=== PATIENT | male | born 1980 | race Two or more races ===

== ENCOUNTER 2025-09-19 12:49 | Emergency (ER) | payer OTHER ==
[~2025-09-19] VITALS: Ht 172.7 cm; Wt 68.9 kg
[2025-09-19] MEDS ORDERED: ASPIRIN 325 MG TABLET.EC PO ONE ×2 (13:45→15:23)
[2025-09-19] MEDS ORDERED: 0.9 % SODIUM CHLORIDE 500 ML IV ONE (13:45)
[2025-09-19 16:00] LABS: BASO % 0.7 % (0.1-1.2); EOS # 0.10 (0.04-0.54); EOS % 1.7 % (0.7-7.0); LYMPH # 1.76 (1.18-3.74); LYMPH % 30.7 % (19.3-53.1); MEAN PLATELET VOLUME 10.00 fl (9.4-12.4); MONO # 0.44 (0.24-0.82); MONO % 7.7 % (4.7-12.5); NEUT # 3.38 (1.56-6.13); NEUT % 58.9 % (34.0-71.1); RED CELL DISTRIBUTION WIDTH 14.2 % (11.6-14.4)
[2025-09-19 16:14] LABS: INR 0.98
[2025-09-19 16:20] LABS: URINE APPEARANCE Clear; URINE BILIRRUBIN Negative (NEGATIVE); URINE BLOOD Negative; URINE COLOR Yellow; URINE GLUCOSE Negative (NEGATIVE); URINE KETONE 15 (NEGATIVE); URINE LEUKOCYTE Negative; URINE NITRATE Negative; URINE PROTEIN Trace (NEGATIVE); URINE UROBILINOGEN 1.0 E.U./dl
[2025-09-19 16:22] LABS: ALT/SGPT 38.0 U/L (12-78); AST/SGOT 21.0 U/L (15-37); BILIRUBIN TOTAL 0.73 mg/dL (0.3-1.2); BUN CREA RATIO 14.0 (7.0-25.0); CREATININE SERUM 1.01 mg/dL (0.70-1.30); GFR 80.62; GLOBULINA 4.1 G/DL (2.4-3.5); GLUCOSE FASTING 153.0 mg/dL (65-100); OSMOLALITY SERUM 287.0 MOSM/KG (275-295)
[2025-09-19 16:23] LABS: URINE BACTERIA 8.3 uL (0.0-1933); URINE RBC 4.1 uL (0.0-20.8)
[2025-09-19 16:41] LABS: URINE CAST 0.00 uL (0.0-1.40); URINE EPITHELIAL CELLS 1.0 uL (0.0-38.8); URINE WBC 1.3 uL (0.0-23.2)
[2025-09-19] MEDS ORDERED: MEDROLPACK PO (17:15)
[2025-09-19] MEDS ORDERED: NORFLEX100MG PO (17:15)
== END 2025-09-19 18:34 | disposition home or self-care (01) ==
LOC: ER 12:50
PROVIDERS: General Practice
DX: R07.89 Other chest pain (principal)